=== PATIENT | female | born 2000 | race African-American/Black ===

== ENCOUNTER 2022-04-12 14:15 | Emergency (ER) | payer SELFPAY ==
[~2022-04-12] VITALS: Ht 167.6 cm; Wt 95.0 kg
[2022-04-12 14:17] VITALS: BP 122/70
== END 2022-04-12 17:35 | disposition left against medical advice (07) ==
LOC: M ED 14:15
DX: Z53.29 Procedure and treatment not carried out because of patient's decision for other reasons (principal)

== ENCOUNTER → 2022-11-09 | Outpatient (REF) ==
[2022-11-09 13:58] LABS: RSV AMPLIFICATION NEGATIVE (NEGATIVE)
== END ==
LOC: M LABSMTC 10:50
PROVIDERS: ATTEND Family Medicine
DX: Z11.52 Encounter for screening for COVID-19 (principal)